=== PATIENT | male | born 1995 | race African-American/Black ===

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

== ENCOUNTER 2020-07-23 03:14 | Emergency (ER) | payer MEDICAID, OTHER ==
[~2020-07-23] VITALS: Ht 180.3 cm; Wt 79.0 kg
[2020-07-23 03:19] VITALS: BP 127/83
== END 2020-07-23 06:35 | disposition left against medical advice (07) ==
LOC: ER 03:14
DX: Z53.21 Procedure and treatment not carried out due to patient leaving prior to being seen by health care provider (principal)

== ENCOUNTER 2020-11-20 23:24 | Emergency (ER) | payer OTHER ==
[~2020-11-20] VITALS: Ht 175.3 cm; Wt 77.0 kg
[2020-11-20 23:50] VITALS: BP 131/78
== END 2020-11-21 00:58 | disposition home or self-care (01) ==
LOC: ER 23:24
DX: E11.40 Type 2 diabetes mellitus with diabetic neuropathy, unspecified (principal); E11.65 Type 2 diabetes mellitus with hyperglycemia; Z79.84 Long term (current) use of oral hypoglycemic drugs
CPT/HCPCS: 82962; 99283